=== PATIENT | female | born 1960 | race Caucasian/White ===

== ENCOUNTER 2016-12-09 08:04 | Day surgery (SDC) | payer OTHER ==
[~2016-12-09] VITALS: Ht 162.6 cm; Wt 69.1 kg
[~2016-12-09 08:04] MED LIST: LOPI600T PO
[2016-12-09 08:18] VITALS: BP 143/83; PULSE 77; RESP 20; TEMP 97.6; O2SAT 100
[2016-12-09] MEDS ORDERED: SIMV20TA PO (08:22)
[2016-12-09] MEDS ORDERED: ALEN1TAB48 PO (08:22)
[2016-12-09] MEDS ORDERED: SODIUM CHLOR 0.9% 1000 ML IV SCH (08:30)
[2016-12-09] MEDS ORDERED: LIDOCAINE HCL 1% 20 ML VIAL ONE (08:37)
[2016-12-09 09:21] LABS: PROTHROMBIN TIME - PATIENT 10.4 SEC (9.8-11.6)
[2016-12-09 09:22] LABS: APTT (PATIENT) 27.9 SEC (24.3-30.1); INTERNATIONAL NORMALIZED RATIO 0.9 RATIO
[2016-12-09] MEDS ORDERED: MIDAZOLAM HCL 2 MG/2 ML VIAL ONE (09:38)
--- NOTE | 2016-12-09 10:56 | PD.RAD ---
Post CT Procedure Prog Note Pre Procedure Diagnosis: (1) B-cell lymphoma Post Procedure Diagnosis: (1) B-cell lymphoma Procedure Date: Dec 09, 2016 Supervising Radiologist: Ced Fajardo JR Anesthesia: Conscious Sedation Plan of Activity Patient to Unit: [facility] Patient Condition: Good See PACS Report for procedural detail/treatment Biopsy Imaging Guidance: CT Side: Left Biopsy Procedure: Lymph Node Specimen: Core Biopsy Findings: 4 core samples of a left retroperitoneal lymph node. Samples in formalin and RPMI fluid. Jr. Scotty,Ced Gutirérez MD Dec 09, 2016 10:56
[2016-12-09 11:05] VITALS: BP 118/81; PULSE 74; RESP 20; TEMP 98.1; O2SAT 97
[2016-12-09 11:20] VITALS: BP 122/80; PULSE 76; RESP 20; O2SAT 98
[2016-12-09 11:35] VITALS: BP 119/75; PULSE 75; RESP 20; O2SAT 98
--- NOTE | 2016-12-09 11:37 | RADRPT ---
EXAM DATE/TIME: 12/09/2016 10:22 [facility] COMPARISON: No previous studies available for comparison. INDICATIONS : Retroperitoneal mass SEDATION TIME: 30 minutes BIOPSY SITE: Left retroperitoneum MEDICATION(S): 1.) 2.5 mg midazolam (Versed) IV 2.) 125 mcg fentanyl (Sublimaze) IV DEVICE(S): 1.) 19 gauge introducer 2.) 20 gauge Temno core biopsy needle MEDICAL HISTORY : Hypertension. Lymphoma. SURGICAL HISTORY : Tonsillectomy. ENCOUNTER: Initial ACUITY: 1 day PAIN SCORE: 0/10 LOCATION: Left flank A total of four core specimen(s) were obtained and sent to the laboratory for pathologic evaluation. PROCEDURE: 1. CT guided retroperitoneal biopsy. 2. Conscious sedation with continuous EKG and oximetry monitoring. 3. EKG and oximetry remained stable throughout the procedure. Prior to the procedure informed consent was obtained. Any appropriate prior imaging studies were rev iewed. Using automated exposure control and adjustment of the mA and/or kV according to patient size, radiat ion dose was kept as low as reasonably achievable to obtain optimal diagnostic quality images. DICOM format image data is available electronically for review and comparison. The site was prepped in a sterile fashion. Full sterile technique was used, including cap, mask, vivi rile gloves and gown and a large sterile sheet. Hand hygiene and 2% chlorhexidine and/or betadine/al cohol prep was utilized per protocol for cutaneous antisepsis. The skin and subcutaneous tissues wer e infiltrated with local anesthetic solution. With CT guidance the enlarged hypermetabolic retroperitoneal lymph node on the left was localized. Bi opsy was performed using the 19 gauge 10 cm coaxial and 20 gauge 15 cm Temno core needle. 4 samples w ere obtained. 3 placed in formalin and one in RPMI fluid. Adequate hemostasis was obtained with compr ession at the puncture site. Follow-up CT scan reveals no hemorrhage. The patient tolerated the procedure well and there were no complications. The patient was returned to the Radiology Outpatient Unit in stable condition. CONCLUSION: Uncomplicated CT guided biopsy of an enlarged hypermetabolic left retroperitoneal lymph node. Ced Fajardo Jr., MD on December 09, 2016 at 11:33 Board Certified Radiologist. This report was verified electronically.
[2016-12-09 12:35] VITALS: BP 109/66; PULSE 92; RESP 20; O2SAT 99
[2016-12-09 12:42] VITALS: BP 104/63; PULSE 72; RESP 20; O2SAT 96
== END 2016-12-09 13:05 | disposition home or self-care (01) ==
LOC: HRAD 08:04 → HRIP 08:05 → HRAD 13:05
PROVIDERS: ATTEND Internal Medicine Hematology & Oncology
DX: C85.13 Unspecified B-cell lymphoma, intra-abdominal lymph nodes (principal); M85.80 Other specified disorders of bone density and structure, unspecified site; I10 Essential (primary) hypertension; Z01.818 Encounter for other preprocedural examination
CPT/HCPCS: 49180; 77012; 85610; 85730; 88307; 99152; 99153; J2250; J3010; 88305

== ENCOUNTER 2016-12-18 07:59 | Day surgery (SDC) | payer OTHER ==
[2016-12-18] VITALS (7 sets, daily range): BP systolic 105–131; BP diastolic 62–76; PULSE 64–78; RESP 17–20; TEMP 97.6–97.8; O2SAT 95–100
[~2016-12-18] VITALS: Ht 162.6 cm; Wt 69.5 kg
[~2016-12-18 07:59] MED LIST changes: +ALEN1TAB48 PO; -LOPI600T PO; +SIMV20TA PO
[2016-12-18] MEDS ORDERED: SODIUM CHLOR 0.9% 1000 ML IV SCH (08:00)
[2016-12-18] MEDS ORDERED: CALC600T4 PO (08:28)
[2016-12-18] MEDS ORDERED: POTA595T (08:28)
[2016-12-18] MEDS ORDERED: VITA2000 PO (08:28)
[2016-12-18] MEDS ORDERED: SODIUM CHLORIDE 2 ML FLUSH PRN IV FLUSH (08:30)
[2016-12-18 08:59] LABS: AUTOMATED NEUTROPHIL # 4.8 TH/MM3 (1.8-7.7); BASOPHIL % 0.4 % (0.0-2.0); EOSINOPHIL # 0.1 TH/MM3 (0-0.4); HEMATOCRIT 42.9 % (35.0-46.0); HEMOGLOBIN 14.4 GM/DL (11.6-15.3); LYMPH % 21.4 % (9.0-44.0); LYMPHOCYTE # 1.5 TH/MM3 (1.0-4.8); MEAN CELL VOLUME 94.3 FL (80.0-100.0); MEAN CORPUSCULAR HEMOGLOBIN 31.6 PG (27.0-34.0); MEAN CORPUSCULAR HGB CONC 33.5 % (32.0-36.0); MEAN PLATELET VOLUME 9.9 FL (7.0-11.0); MONOCYTE # 0.6 TH/MM3 (0-0.9); NEUT % 69.2 % (16.0-70.0); PLATELET COUNT 198 TH/MM3 (150-450); RED BLOOD COUNT 4.55 MIL/MM3 (4.00-5.30); RED CELL DISTRIBUTION WIDTH 12.7 % (11.6-17.2); WHITE BLOOD COUNT 6.9 TH/MM3 (4.0-11.0)
[2016-12-18] MEDS ORDERED: SODIUM CHLORIDE 2 ML FLUSH BID IV FLUSH SCH (09:00)
[2016-12-18] MEDS ORDERED: MIDAZOLAM HCL 2 MG/2 ML VIAL ONE (09:15)
[2016-12-18] MEDS ORDERED: LIDOCAINE 1%/EPINEPHrine 1:100,000 SOLN 20 ML VIAL ONE (10:00)
--- NOTE | 2016-12-18 13:53 | RADRPT ---
EXAM DATE/TIME: 12/18/2016 09:27 [facility] COMPARISON: No previous studies available for comparison. INDICATIONS : B-cell lymphoma. SEDATION TIME: 30 minutes BIOPSY SITE: Right iliac MEDICATION(S): 1.) 3 mg midazolam (Versed) IV 2.) 150 mcg fentanyl (Sublimaze) IV DEVICE(S): 1.) 11 gauge Bone marrow biopsy needle MEDICAL HISTORY : Hypertension. Lymphoma. SURGICAL HISTORY : None. ENCOUNTER: Initial ACUITY: 1 day PAIN SCORE: 0/10 LOCATION: Right pelvis A total of one core specimen(s) were obtained and sent to the laboratory for pathologic evaluation. PROCEDURE: 1. CT guided bone marrow biopsy. 2. Conscious sedation with continuous EKG and oximetry monitoring. Prior to the procedure informed consent was obtained. Any appropriate prior imaging studies were rev iewed. Using automated exposure control and adjustment of the mA and/or kV according to patient size , radiation dose was kept as low as reasonably achievable to obtain optimal diagnostic quality images . DICOM format image data is available electronically for review and comparison. The site was prepped in a sterile fashion. Full sterile technique was used, including cap, mask, vivi rile gloves and gown and a large sterile sheet. Hand hygiene and 2% chlorhexidine and/or betadine/al cohol prep was utilized per protocol for cutaneous antisepsis. The skin and subcutaneous tissues wer e infiltrated with local anesthetic solution. With CT guidance the previously identified target was localized. Biopsy was performed using the presc ribed needle as above. Following biopsy marrow aspiration was performed with repeat puncture. Adequa te hemostasis was obtained with compression at the puncture site. Follow-up CT scan reveals no hemorrhage. Conscious sedation was performed with the prescribed dosages and duration as above in the presence of an independent trained radiology nurse to assist in the monitoring of the patient. EKG and oximetry remained stable throughout the procedure. The patient tolerated the procedure well and there were no complications. The patient was sent to Radiology Outpatient Unit in stable condition. CONCLUSION: 1. Uncomplicated CT guided bone marrow aspirate. 2. Uncomplicated CT guided bone marrow biopsy. Vishnu Snaford MD on December 18, 2016 at 13:51 Board Certified Radiologist. This report was verified electronically.
== END 2016-12-18 12:05 | disposition home or self-care (01) ==
LOC: HRAD 07:59 → HRIP 08:00 → HRAD 12:05
PROVIDERS: ATTEND Internal Medicine Hematology & Oncology
DX: C85.10 Unspecified B-cell lymphoma, unspecified site (principal); I10 Essential (primary) hypertension
CPT/HCPCS: 38221; 77012; 85025; 85097; 88305; 88311; 88313; 99152; 99153; C1830; G0364; J2250; J3010; J7030

== ENCOUNTER 2017-06-01 06:02 | Day surgery (SDC) | payer OTHER ==
[~2017-06-01] VITALS: Ht 162.6 cm; Wt 70.0 kg
[~2017-06-01 06:02] MED LIST changes: +CALC600T4 PO; +POTA595T; +VITA2000 PO
[2017-06-01] MEDS ORDERED: ESTR42.5V VAGINAL (06:57)
[2017-06-01] MEDS ORDERED: SODIUM CHLORIDE 0.9% 1000 ML IV SCH (07:00)
[2017-06-01 07:06] VITALS: BP 128/71; PULSE 71; RESP 16; TEMP 97.4; O2SAT 97
[2017-06-01] MEDS ORDERED: VANCOMYCIN 1000 MG/NS 250 ML - implanted port/tunneled catheter IV SCH ×2 (07:30)
[2017-06-01] MEDS ORDERED: POVIDONE IODINE 5% (ANTISEPSIS KIT) 4 APPLICATIONS EACH NARE SCH (07:30)
[2017-06-01] MEDS ORDERED: CHLORHEXIDINE GLUCONATE 2 % 1 PACK (2 CLOTHS) TOPICAL SCH (07:30)
[2017-06-01] MEDS ORDERED: ceFAZolin 2 GM PREMIX 50 ML - implanted port/tunneled catheter insertion IV SCH (07:30)
[2017-06-01] MEDS ORDERED: MIDAZOLAM HCL 2 MG/2 ML VIAL ONE ×2 (07:51)
[2017-06-01] MEDS ORDERED: fentaNYL CITRATE 250 MCG/5 ML AMP ONE (07:52)
[2017-06-01] MEDS ORDERED: LIDOCAINE 1%/EPINEPHrine 1:100,000 SOLN 30 ML VIAL ONE (08:17)
--- NOTE | 2017-06-01 08:50 | PD.RAD ---
Post Procedure Progress Note Pre Procedure Diagnosis: (1) B-cell lymphoma Post Procedure Diagnosis: (1) B-cell lymphoma Procedure Date: Jun 01, 2017 Supervising Radiologist: Enmanuel Dailey Proceduralist/Assist: Alberto Hernández, RT(R), Latonia Dao RT(R) Anesthesia: Conscious Sedation Plan of Activity Patient to Unit: [facility] Patient Condition: Good See PACS Report for procedural detail/treatment Enmanuel Dailey MD Jun 01, 2017 08:50
[2017-06-01 09:00] VITALS: BP 130/81; PULSE 92; RESP 16; TEMP 97.6; O2SAT 95
[2017-06-01 09:15] VITALS: BP 110/67; PULSE 93; RESP 16; O2SAT 95
--- NOTE | 2017-06-01 09:29 | RADRPT ---
EXAM DATE/TIME: 06/01/2017 08:09 [facility] COMPARISON: No previous studies available for comparison. INDICATIONS : Patient presents with Non Hodgkins Lymphoma in need of port placement. MEDICAL HISTORY : HTN, Non Hodgkins Lymphoma, High Cholesterol SURGICAL HISTORY : Tonsillectomy ENCOUNTER: Initial ACUITY: 2 weeks PAIN SCORE: 0/10 FLUORO TIME: 0.3 minutes IMAGE SERIES: 1 SEDATION TIME: 30 minutes ACCESS: Right internal jugular vein SEDATION: 1.) 2 mg midazolam (Versed) IV 2.) 150 mcg fentanyl (Sublimaze) IV Prophylactic antibiotics were administered with appropriate pre-procedure timing. Vancomycin within 2 hours of procedure, Ancef (or alternative) within 1 hour of procedure. DEVICE: 1. 8 [place] single lumen [id number] PROCEDURE : 1. Continuous pulse oximetry and EKG monitoring. 2. Intravenous conscious sedation. 3. Ultrasound guidance for venous access. 4. Fluoroscopic guided implantable central venous port placement. The patient was placed supine. The neck was prepped in sterile fashion. Full sterile technique was u sed, including cap, mask, sterile gloves and gown, and a large sterile sheet. Hand hygiene and 2% ch lorhexidine Betadine was utilized per protocol for cutaneous antisepsis with appropriate dry time for site. Sterile gel and sterile probe cover were utilized for ultrasound guidance. The skin and sub cutaneous tissues were infiltrated with local anesthetic solution. Under direct ultrasound guidance, central venous access was accomplished in the targeted vessel. The ultrasound images depicting access guidance were stored and saved to PACS for permanent record. A s ubcutaneous pocket was created using blunt dissection. The port was introduced to the pocket. The c atheter tubing was fed through a subcutaneous tunnel to the venotomy site. The catheter tubing was c ut to a suitable length and then was introduced through a valved Peel-Away sheath and positioned with catheter tubing tip at the cavo-atrial junction level. The pocket incision was closed with subcutic ular Vicryl suture. Steri-Strips were applied. The port was flushed and locked with heparin solutio n per protocol. Sterile dressing was applied to the site. The patient tolerated the procedure well. Conscious sedation was performed with the prescribed dosages and duration as above in the presence of an independent trained radiology nurse to assist in the monitoring of the patient. EKG and oximetry remained stable throughout the procedure. The patient tolerated the procedure well and there were no complications. The patient was sent to post anesthesia recovery in stable condition. CONCLUSION: Uncomplicated ultrasound and fluoroscopic guided implanted central venous port catheter placement as described in detail above. An 8 [place] [employer] port was placed. Enmanuel Dailey MD on June 01, 2017 at 9:27 Board Certified Radiologist. This report was verified electronically.
[2017-06-01 09:45] VITALS: BP 111/68; PULSE 77; RESP 16; O2SAT 97
[2017-06-01 10:15] VITALS: BP 117/68; PULSE 68; RESP 16; O2SAT 97
[2017-06-01 10:45] VITALS: BP 104/62; PULSE 67; RESP 16; O2SAT 97
== END 2017-06-01 11:15 | disposition home or self-care (01) ==
LOC: HROP 06:02 → HRIP 06:14 → HROP 11:15
PROVIDERS: ATTEND Internal Medicine Hematology & Oncology
DX: C85.10 Unspecified B-cell lymphoma, unspecified site (principal); I10 Essential (primary) hypertension; E78.00 Pure hypercholesterolemia, unspecified
CPT/HCPCS: 36561; 76937; 77001; 99152; 99153; C1788; J1642; J2250; J3010; J7030